=== PATIENT | male | born 1960 | race African-American/Black ===

== ENCOUNTER 2021-01-17 09:12 | Inpatient (IN) | payer OTHER ==
[~2021-01-17] VITALS: Ht 177.8 cm; Wt 61.7 kg
--- NOTE | 2021-01-17 09:15 | NUR ---
[id number] [facility] CONGREGATE FOR NOTED HYPOXIA, SPO2 70'S ON 5L NC AND ELEVATED BLOOD PRESSURE AT 193/122MMHG. TO ER BED 8, PLACED ON NON-REBREATHER MASK AT 15LPM. SPO2 READING AT 98%. HOOKED TO MONITOR. BP AT 188/134MMHG. CHANGED TO HOSP GOWN. DR NIELSEN AT BEDSIDE.
[2021-01-17 09:35] LABS: WHITE BLOOD COUNT (AUTO) 13.5 K/uL (4.3-11.0)
--- NOTE | 2021-01-17 09:43 | NUR ---
URINE SAMPLE COLLECTED VIA STRAIGHT CATHETER. SENT SAMPLE TO LAB
[2021-01-17 09:48] LABS: CALCIUM, SERUM 9.3 mg/dL (8.5-10.1); CARBON DIOXIDE 20 mmol/L (21-32); CHLORIDE 102 mmol/L (98-107); CREATININE 4.9 mg/dL (0.6-1.3); GLUCOSE 204 mg/dL (74-106); POTASSIUM 4.3 mmol/L (3.5-5.1); SODIUM SERUM 137 mmol/L (136-145); UREA NITROGEN, BLOOD 64 mg/dL (7-18)
[2021-01-17 09:53] LABS: BASOPHILS # (AUTO) 0.1 K/uL (0.0-0.2); BASOPHILS % (AUTO) 0.4 % (0.0-2.0); EOSINOPHILS % (AUTO) 0.7 % (0.0-6.0); HEMATOCRIT 37 % (39-51); HEMOGLOBIN 12.1 g/dL (13.5-17.5); LYMPHOCYTES # (AUTO) 1.6 K/uL (0.8-4.8); LYMPHOCYTES % (AUTO) 12.1 % (20.0-44.0); MEAN CORPUSCULAR HGB CONC 33 g/dl (31.0-36.0); MEAN CORPUSCULAR VOLUME 97 fL (80-96); MONOCYTES # (AUTO) 0.7 K/uL (0.1-1.30); MONOCYTES % (AUTO) 4.9 % (2.0-12.0); NEUTROPHILS # (AUTO) 11.1 K/uL (1.8-8.9); NEUTROPHILS % (AUTO) 81.9 % (43.0-81.0); PLATELET COUNT (AUTO) 314 K/uL (150-450); RED BLOOD CELL COUNT(AUTO) 3.81 MIL/uL (4.5-6.0)
[2021-01-17 10:00] LABS: ALANINE AMINOTRANSFERASE 134 U/L (12-78); ALBUMIN 3.1 g/dL (3.4-5.0); ALKALINE PHOSPHATASE 60 U/L (46-116); ASPARTATE AMINOTRANSFERASE 80 U/L (15-37); BILIRUBIN,DIRECT 0.2 mg/dL (0.0-0.2); BILIRUBIN,TOTAL 0.6 mg/dL (0.2-1.0)
[2021-01-17 10:01] LABS: ALCOHOL, BLOOD < 3 mg/dL (0-0)
[2021-01-17 10:05] LABS: SERUM AMMONIA 14 umol/L (11-32)
--- NOTE | 2021-01-17 10:05 | NUR ---
MADE MD AWARE OF PATIENT'S BP
[2021-01-17 10:25] LABS: ABG BASE EXCESS -5.6 mmol/L; ABG PH 7.364 (7.350-7.450); ABG PO2 127.2 mmHg (75.0-100.0); COHb 0.2 % (0.5-1.5); MetHb 0.1 % (0.0-1.5); SITE, ABG Right Radial; VENT MODE, BG NRB MASK
[2021-01-17] MEDS ORDERED: FUROSEMIDE 40 MG/4 ML VIAL ONE (10:25)
[2021-01-17] MEDS ORDERED: FUROSEMIDE 40 MG/4 ML VIAL IV ONE (10:30)
[2021-01-17] MEDS ORDERED: hydrALAZINE HCL IV 20 MG VIAL IV ONE (11:00)
[2021-01-17] MEDS ORDERED: hydrALAZINE HCL IV 20 MG VIAL ONE (11:12)
[2021-01-17] MEDS ORDERED: DOCU-141 PO (11:26)
[2021-01-17] MEDS ORDERED: AMLO10TA4 PO (11:26)
[2021-01-17] MEDS ORDERED: HEPA100D33 SUBCUT (11:26)
[2021-01-17] MEDS ORDERED: ISOS30TA86 PO (11:26)
[2021-01-17] MEDS ORDERED: ASPI-1169 PO (11:26)
[2021-01-17] MEDS ORDERED: ATOR40TA PO (11:26)
[2021-01-17] MEDS ORDERED: MIRT-119 PO (11:26)
[2021-01-17] MEDS ORDERED: HYDR100T27 PO (11:26)
[2021-01-17] MEDS ORDERED: CARV25TA PO (11:26)
[2021-01-17] MEDS ORDERED: CLONIDINE PATCH (11:26)
--- NOTE | 2021-01-17 12:17 | NUR ---
CALLED NURSING SUP REGARDING PT BED
[2021-01-17] MEDS ORDERED: HYDROCODONE/APAP 5/325MG TABLET PO PRN (12:30)
[2021-01-17] MEDS ORDERED: Z GUARD REMEDY 2 OZ OINT TP PRN (12:30)
[2021-01-17] MEDS ORDERED: ACETAMINOPHEN 325 MG TABLET PO PRN (12:30)
[2021-01-17] MEDS ORDERED: ZOLPIDEM TARTRATE 5 MG TABLET PO PRN (12:30)
[2021-01-17] MEDS ORDERED: ONDANSETRON HCL/PF 4 MG/2 ML VIAL IVP PRN (12:30)
--- NOTE | 2021-01-17 12:42 | NUR ---
ROOM 113-1
--- NOTE | 2021-01-17 12:54 | NUR ---
REPORT GIVEN TO ILIR ALVAREZ.
[2021-01-17] MEDS ORDERED: MORPHINE SULFATE INJ 2 MG/ML DISP.SYRIN IV PRN (13:00)
[2021-01-17] MEDS ORDERED: NITROGLYCERIN 0.4 MG/TAB BOTTLE SL PRN (13:00)
--- NOTE | 2021-01-17 13:05 | NUR ---
COVID PCR SWAB COLLECTED AND SENT TO LAB
[2021-01-17] MEDS ORDERED: BUMETANIDE INJ 4 MG in IV NS 0.9% 24 ML IV ONE (14:00)
--- NOTE | 2021-01-17 14:00 | NUR ---
RN NOTE PATIENT RECEIVED ON THE FLOOR. PATIENT ON 6L O2 NC WITH NO SIGNS OF LABORED BREATHING AT THIS TIME. PATIENT STABLE AT THIS TIME. RIGHT AC 18G PIV IN PLACE, PATENT WITH NO SIGNS OF INFILTRATION. WILL CONTINUE TO MONITOR.
[2021-01-17] MEDS: hydrALAZINE HCL 25 MG TABLET PO SCH ×2 (14:27→17:32)
[2021-01-17] MEDS: ASPIRIN EC 81 MG TABLET.DR PO SCH (14:27)
[2021-01-17] MEDS: CARVEDILOL 3.125 MG TABLET PO SCH ×2 (14:27→17:33)
[2021-01-17] MEDS: AMLODIPINE BESYLATE 10 MG TABLET PO SCH (14:27)
[2021-01-17] MEDS: ISOSORBIDE MONONITRATE (30MG) 30 MG TAB.SR.24H PO SCH (14:28)
[2021-01-17 14:30] VITALS: BP 166/97
[2021-01-17 16:00] VITALS: BP 142/82
[2021-01-17] MEDS: DOCUSATE SODIUM 100 MG CAPSULE PO SCH (17:00)
--- NOTE | 2021-01-17 19:00 | NUR ---
RN NOTE RECEIVED PATIENT IN BED, AO X 3, IN NO S/SX OF ACUTE DISTRESS AT THIS TIME. SATURATION AT 96% ON 6L VIA SR ON THE MONITOR, HR IS 82. NOTED IV SITE AT RAC 18G, AND LFA 18G, BOTH PATENT AND FLUSHING WELL, NO S/S OF INFECTION OR INFILTRATION. APPROPRIATE ISOLATION PRECAUTIONS IN PLACE. SAFETY MEASURES IMPLEMENTED. PATIENT BED ALARM IS ON. HEAD OF BED ELEVATED. BED IS LOCKED, IN LOWEST POSITION AND SIDE RAILS UP. CALL LIGHT WITHIN REACH OF THE PATIENT. WILL CONTINUE TO MONITOR AND REASSESS FOR ANY CHANGES.
[2021-01-17 20:00] VITALS: BP 139/92
--- NOTE | 2021-01-17 20:51 | NUR ---
RN NOTE TELEPHONE CALL FROM HALLIE OF LAB, RELAYED CRITICAL LAB VALUE OF TROPONIN 0.[address] GATES WAS NOTIFIED, ORDER RECEIVED FOR EKG WITH PLAN TO START PATIENT ON HEPARIN DRIP.
[2021-01-17] MEDS ORDERED: HEPARIN SODIUM, PORCINE 5000 UNITS/1 ML VIAL SQ SCH (21:00)
[2021-01-17] MEDS: MIRTAZAPINE 15 MG TABLET PO SCH (21:14)
[2021-01-17] MEDS: ATORVASTATIN 40 MG TABLET PO SCH (21:14)
--- NOTE | 2021-01-17 21:40 | NUR ---
RN NOTE RT AT BEDSIDE FOR EKG
--- NOTE | 2021-01-17 21:45 | NUR ---
KIM NOTE NORMA RESULTED, STRIP SENT TO DR GATES Addendum: 01/18/21 at 0201 by JUAN JOSÉ LARRY RN ORDER RECEIVED TO START HEPARIN INFUSION.
[2021-01-17] MEDS ORDERED: HEPARIN INFUSION/D5W 500 ML IV ONE (22:07)
[2021-01-17] MEDS ORDERED: HEPARIN INFUSION/D5W 500 ML IV PRN (22:30)
--- NOTE | 2021-01-17 22:45 | NUR ---
2245 RECEIVED A CALL FROM PANTRY WORKER PHARMACIST THOMAS TO HOLD HEPARIN BOLUS PATIENT ALREADY RECEIVED HEPARIN SUB-Q ORDERED.
--- NOTE | 2021-01-17 22:50 | NUR ---
2250 KIM LARRY MADE AWARE TO HOLD HEPARIN BOLUS PER PHARMACIST.
[2021-01-17] MEDS ORDERED: FUROSEMIDE 20 MG/2 ML VIAL IV ONE (23:30)
[2021-01-18] VITALS: BP 143/93
[2021-01-18 04:00] VITALS: BP 159/98
[2021-01-18 06:14] LABS: CALCIUM, SERUM 8.8 mg/dL (8.5-10.1); CARBON DIOXIDE 21 mmol/L (21-32); CHLORIDE 99 mmol/L (98-107); CREATININE 5.1 mg/dL (0.6-1.3); GLUCOSE 156 mg/dL (74-106); MAGNESIUM 2.3 mg/dL (1.8-2.4); PHOSPHORUS 5.4 mg/dL (2.5-4.9); SODIUM SERUM 133 mmol/L (136-145); UREA NITROGEN, BLOOD 65 mg/dL (7-18)
[2021-01-18 06:36] LABS: BASOPHILS % (AUTO) 0.6 % (0.0-2.0); EOSINOPHILS % (AUTO) 2.1 % (0.0-6.0); HEMATOCRIT 31 % (39-51); HEMOGLOBIN 10.4 g/dL (13.5-17.5); LYMPHOCYTES # (AUTO) 2.7 K/uL (0.8-4.8); LYMPHOCYTES % (AUTO) 34.7 % (20.0-44.0); MEAN CORPUSCULAR HGB CONC 34 g/dl (31.0-36.0); MEAN CORPUSCULAR VOLUME 96 fL (80-96); MONOCYTES # (AUTO) 0.9 K/uL (0.1-1.30); MONOCYTES % (AUTO) 11.7 % (2.0-12.0); NEUTROPHILS # (AUTO) 3.9 K/uL (1.8-8.9); NEUTROPHILS % (AUTO) 50.9 % (43.0-81.0); PLATELET COUNT (AUTO) 284 K/uL (150-450); RED BLOOD CELL COUNT(AUTO) 3.17 MIL/uL (4.5-6.0); WHITE BLOOD COUNT (AUTO) 7.7 K/uL (4.3-11.0)
--- NOTE | 2021-01-18 07:30 | NUR ---
[place] RN AM NOTE RECEIVED PATIENT IN BED, AO X 3, IN NO S/SX OF ACUTE DISTRESS AT THIS TIME. ON 6L O2 NASAL CANULA, 96% O2 SAT, SINUS RHYTHM HR IS 97 ON MONITOR. RAC 18G, AND LFA 18G, BOTH FLUSHES, BOTH SITES CLEAR. PATIENT ON HEPARIN DRIP 915 U/HR, APTT THIS MORNING 48.1 NO CHANGE TO DOSE. NO SIGNS OF BLEEDING. APPROPRIATE ISOLATION PRECAUTIONS IN PLACE. SEE NURSING FLOWSHEET FOR SKIN ISSUES. RENAL DIET. NEEDS ASSIST. SAFETY MEASURES IMPLEMENTED. PATIENT BED ALARM IS ON. HEAD OF BED ELEVATED. BED IS LOCKED, IN LOWEST POSITION AND SIDE RAILS UP. CALL LIGHT WITHIN REACH OF THE PATIENT. WILL CONTINUE TO MONITOR AND REASSESS FOR ANY CHANGES.
[2021-01-18] MEDS: PANTOPRAZOLE 40 MG TABLET.DR PO SCH (07:58)
[2021-01-18 08:00] VITALS: BP 159/97
[2021-01-18 08:07] LABS: THYROID STIMULATING HORMONE 1.001 uIU/mL (0.358-3.74)
[2021-01-18] MEDS ORDERED: ASPIRIN 81 MG TAB.CHEW PO SCH (09:00)
--- NOTE | 2021-01-18 09:30 | NUR ---
RN NOTES DUE MEDS GIVEN
[2021-01-18] MEDS: CARVEDILOL 3.125 MG TABLET PO SCH (09:45)
[2021-01-18] MEDS: ISOSORBIDE MONONITRATE (30MG) 30 MG TAB.SR.24H PO SCH (09:45)
[2021-01-18] MEDS: DOCUSATE SODIUM 100 MG CAPSULE PO SCH ×2 (09:45→17:41)
[2021-01-18] MEDS: hydrALAZINE HCL 25 MG TABLET PO SCH ×3 (09:46→17:41)
[2021-01-18] MEDS: AMLODIPINE BESYLATE 10 MG TABLET PO SCH (09:47)
[2021-01-18] MEDS: ASPIRIN EC 81 MG TABLET.DR PO SCH (09:47)
--- NOTE | 2021-01-18 10:59 | NUR ---
WOUND CARE CONSULT: REVIEWED CHART, NURSING DOCUMENTATION AND PHOTO WHICH INDICATES STAGE 2 ULCER TO LOWER BACK/SACRAL AREA, PRESENT ON ADMISSION. RECOMMENDATIONS MADE FOR WOUND CARE AND SKIN PROTECTION. DISCUSSED WITH NURSING STAFF. IN AGREEMENT WITH PLAN OF CARE. Addendum: 01/18/21 at 1104 by UMAIR MICHAELS WNDNU [facility]
--- NOTE | 2021-01-18 11:47 | NUR ---
RN NOTES DR. DOUGIE WILKERSON AT BEDSIDE. DC HEPARIN DRIP.
[2021-01-18 12:00] VITALS: BP 152/90
[2021-01-18] MEDS ORDERED: HYDROGEL DRESSING 90 GM TUBE TP PRN (12:00)
[2021-01-18] MEDS: HYDROGEL DRESSING 90 GM TUBE TP SCH (12:12)
[2021-01-18 16:00] VITALS: BP 146/85
--- NOTE | 2021-01-18 19:03 | NUR ---
RN NOTES ALL NEEDS MET AT THIS TIME. STABLE. NO SIGNIFICANT CHANGE IN CONDITION. WILL ENDORSE TO NEXT SHIFT FOR GIANNI.
--- NOTE | 2021-01-18 19:30 | NUR ---
RN OPENING NOTES RECEIVED PATIENT ON BED, SLEEPING BUT EASY TO AROUSED, RESPIRATORY EVEN AND UNLABORED, ON O2 4LPM, NO SOB NOTED, DENIES PAIN, NO S/S OF DISTRESS NOTED, RESIDENT NOTED WITH RFA G#18, LFA G#18 BOTH INTACT, PATENT AND FLUSHED WITH NS, NO INFILTRATION NOTED IN SITE. BED IN LOWEST POSITION, LOCKED, SIDE RAILS UP, BED ALARM ARMED. ALL NEEDS ATTENDED. CALL LIGHT WITH IN REACH.
[2021-01-18 20:00] VITALS: BP 154/99
[2021-01-18] MEDS: MIRTAZAPINE 15 MG TABLET PO SCH (21:22)
[2021-01-18] MEDS: ATORVASTATIN 40 MG TABLET PO SCH (21:22)
[2021-01-19] VITALS: BP 157/99
--- NOTE | 2021-01-19 00:35 | NUR ---
RN NOTES URINE COLLECTED; NOTIFIED LAB FOR ECCLESIASTICAL WORKER.
[2021-01-19 04:00] VITALS: BP 147/86
[2021-01-19 04:44] LABS: BILIRUBIN,URINE NEGATIVE (NEGATIVE); COLOR,URINE YELLOW (YELLOW); LEUKOCYTE ESTERASE ,URINE NEGATIVE (NEGATIVE); NITRITE, URINE NEGATIVE (NEGATIVE); PROTEIN,URINE TRACE mg/dl (NEGATIVE); UGLUCOSE NEGATIVE (NEGATIVE); UROBILINOGEN,URINE 0.2 EU/dL (0.2)
[2021-01-19 05:00] LABS: CREATININE, URINE 33.7 MG/DL (30.0-125.0)
--- NOTE | 2021-01-19 06:58 | NUR ---
RN CLOSING NOTES PATIENT AWAKE ON BED, WATCHING TV, RESPIRATORY EVEN AND UNLABORED, ON O2 4LPM, NO SOB NOTED, DENIES PAIN, NO S/S OF DISTRESS NOTED, SR ON BOARDMARKER AND 89 HR. PATIENT WITH RFA G#18, LFA G#18 BOTH INTACT, PATENT AND FLUSHED WITH NS, NO INFILTRATION NOTED IN SITE. ALL DUE MEDS GIVEN ORDERED. BED IN LOWEST POSITION, LOCKED, SIDE RAILS UP, BED ALARM ARMED. ALL NEEDS ATTENDED. CALL LIGHT WITH IN REACH.
[2021-01-19 07:28] LABS: ALBUMIN 2.8 g/dL (3.4-5.0); BILIRUBIN,TOTAL 0.6 mg/dL (0.2-1.0); CALCIUM, SERUM 8.7 mg/dL (8.5-10.1); CREATININE 4.9 mg/dL (0.6-1.3); MAGNESIUM 2.4 mg/dL (1.8-2.4); PHOSPHORUS 5.8 mg/dL (2.5-4.9); POTASSIUM 3.8 mmol/L (3.5-5.1); TOTAL PROTEIN, SERUM 7.2 g/dL (6.4-8.2)
[2021-01-19 07:31] LABS: BASOPHILS % (AUTO) 0.6 % (0.0-2.0); EOSINOPHILS % (AUTO) 1.5 % (0.0-6.0); HEMATOCRIT 29 % (39-51); LYMPHOCYTES # (AUTO) 2.3 K/uL (0.8-4.8); LYMPHOCYTES % (AUTO) 30.7 % (20.0-44.0); MEAN CORPUSCULAR HGB CONC 35 g/dl (31.0-36.0); MEAN CORPUSCULAR VOLUME 96 fL (80-96); MONOCYTES # (AUTO) 0.7 K/uL (0.1-1.30); MONOCYTES % (AUTO) 9.9 % (2.0-12.0); NEUTROPHILS # (AUTO) 4.3 K/uL (1.8-8.9); NEUTROPHILS % (AUTO) 57.3 % (43.0-81.0); PLATELET COUNT (AUTO) 259 K/uL (150-450); RED BLOOD CELL COUNT(AUTO) 2.99 MIL/uL (4.5-6.0); WHITE BLOOD COUNT (AUTO) 7.6 K/uL (4.3-11.0)
[2021-01-19 08:00] VITALS: BP 131/80
[2021-01-19 08:01] LABS: BACTERIA,URINE Few /HPF (None Seen); SQUAMOUS EPITHELIAL CELL,UR Few /HPF (None Seen); WBC,URINE 0-2 /HPF (0-3)
[2021-01-19] MEDS: ISOSORBIDE MONONITRATE (30MG) 30 MG TAB.SR.24H PO SCH (08:43)
[2021-01-19] MEDS: DOCUSATE SODIUM 100 MG CAPSULE PO SCH ×2 (08:43→17:07)
[2021-01-19] MEDS: ASPIRIN EC 81 MG TABLET.DR PO SCH (08:44)
[2021-01-19] MEDS: PANTOPRAZOLE 40 MG TABLET.DR PO SCH (08:44)
[2021-01-19] MEDS: hydrALAZINE HCL 25 MG TABLET PO SCH ×3 (08:44→17:07)
[2021-01-19] MEDS: AMLODIPINE BESYLATE 10 MG TABLET PO SCH (08:44)
[2021-01-19] MEDS: CARVEDILOL 12.5 MG TABLET PO SCH ×2 (08:45→17:07)
[2021-01-19] MEDS: HYDROGEL DRESSING 90 GM TUBE TP SCH (08:45)
[2021-01-19 12:00] VITALS: BP 131/80
[2021-01-19] MEDS: LOSARTAN POTASSIUM 50 MG TABLET PO SCH (12:59)
[2021-01-19] MEDS: FUROSEMIDE 40 MG/4 ML VIAL IV SCH ×2 (14:41→17:07)
[2021-01-19 16:00] VITALS: BP 130/77
--- NOTE | 2021-01-19 19:20 | NUR ---
BALLOON PILOT OPENING NOTES: RECEIVED PATIENT IN BED,ASLEEP EASILY AROUSABLE. NO S/S OF DISTRESS NOTED. A/O X3. NO COMPLAIN OF PAIN. CALL LIGHT WITHIN REACH. BED ALARM ON. BED IN LOWEST AND LOCKED POSITION. ON O2 AT 4L/MIN NASAL CANNULA. WITH CONDOM CATHETER, DRAINING CLEAR YELLOW URINE OUTPUT.HEELS OFFLOADED. TURNED AND REPOSITIONED. HOB ELEVATED.
[2021-01-19 20:00] VITALS: BP 141/87
--- NOTE | 2021-01-19 20:30 | NUR ---
ON SINUS RHYTHM.
[2021-01-19] MEDS: ATORVASTATIN 40 MG TABLET PO SCH (21:50)
[2021-01-19] MEDS: MIRTAZAPINE 15 MG TABLET PO SCH (21:51)
[2021-01-20] VITALS: BP 154/91
[2021-01-20 04:00] VITALS: BP 124/79
--- NOTE | 2021-01-20 06:00 | NUR ---
GROVE SUPERINTENDENT CLOSING NOTES: PATIENT IN BED, ASLEEP, EASILY AROUSABLE. NO S/S OF DISTRESS NOTED. NO COMPLAIN OF PAIN. CALL LIGHT WITHIN REACH. BED IN LOWEST AND LOCKED POSITION. BEDREST. TURNED AND REPOSITIONED [id number]. HEELS OFFLOADED.WITH CONDOM CATHETER INTACT. ON O2 AT 4L/MIN NASAL CANNULA. WOUND TREATMENT ON THE SACRAL DONE.OFFLOADED.
--- NOTE | 2021-01-20 07:42 | NUR ---
RN OPENING NOTE RECEIVED PATIENT ON BED, SLEEPING BUT EASY TO AROUSED A/O X 3 , RESPIRATORY EVEN AND UNLABORED, ON O2 4L NC, NO SOB NOTED, DENIES PAIN, NO S/S OF DISTRESS NOTED, RESIDENT NOTED WITH RFA G#18, LFA G#18 BOTH INTACT, PATENT AND FLUSHED WITH NS, SL. SAFETY PROTOCOL IN PLACE BED IN LOWEST POSITION, LOCKED, SIDE RAILS UP, BED ALARM ARMED. CALL LIGHT WITH IN REACH
[2021-01-20 08:00] VITALS: BP 146/78
[2021-01-20] MEDS: DOCUSATE SODIUM 100 MG CAPSULE PO SCH ×2 (08:16→17:00)
[2021-01-20] MEDS: AMLODIPINE BESYLATE 10 MG TABLET PO SCH (08:17)
[2021-01-20] MEDS: LOSARTAN POTASSIUM 50 MG TABLET PO SCH (08:17)
[2021-01-20] MEDS: ISOSORBIDE MONONITRATE (30MG) 30 MG TAB.SR.24H PO SCH (08:17)
[2021-01-20] MEDS: CARVEDILOL 12.5 MG TABLET PO SCH ×2 (08:17→17:00)
[2021-01-20] MEDS: PANTOPRAZOLE 40 MG TABLET.DR PO SCH (08:17)
[2021-01-20] MEDS: hydrALAZINE HCL 25 MG TABLET PO SCH ×3 (08:18→16:12)
[2021-01-20] MEDS: FUROSEMIDE 40 MG/4 ML VIAL IV SCH ×2 (08:18→16:11)
[2021-01-20] MEDS: ASPIRIN EC 81 MG TABLET.DR PO SCH (08:18)
[2021-01-20] MEDS: HYDROGEL DRESSING 90 GM TUBE TP SCH (08:18)
--- NOTE | 2021-01-20 10:55 | NUR ---
RN NOTE ROUND DONE, PATIENT IS IN BED IN A SEMI FOWLERS POSITION. PT DOES NOT EXPRESS SOB OR PAIN AT THIS TIME. SKIN CARE PERFORMED. SAFETY PROTOCOL IN PLACE, BED ALARM ACTIVATED, BED IN LOWEST POSITION, SIDE RAILS UPX2 AND CALL LIGHT WITHIN REACH.
[2021-01-20 12:00] VITALS: BP 129/72
[2021-01-20 12:00] LABS: BASOPHILS % (AUTO) 0.8 % (0.0-2.0); EOSINOPHILS % (AUTO) 1.1 % (0.0-6.0); HEMATOCRIT 31 % (39-51); HEMOGLOBIN 10.7 g/dL (13.5-17.5); LYMPHOCYTES # (AUTO) 1.7 K/uL (0.8-4.8); LYMPHOCYTES % (AUTO) 30.4 % (20.0-44.0); MEAN CORPUSCULAR HGB CONC 34 g/dl (31.0-36.0); MEAN CORPUSCULAR VOLUME 96 fL (80-96); MONOCYTES # (AUTO) 0.4 K/uL (0.1-1.30); NEUTROPHILS # (AUTO) 3.3 K/uL (1.8-8.9); NEUTROPHILS % (AUTO) 60.7 % (43.0-81.0); PLATELET COUNT (AUTO) 283 K/uL (150-450); RED BLOOD CELL COUNT(AUTO) 3.27 MIL/uL (4.5-6.0); WHITE BLOOD COUNT (AUTO) 5.4 K/uL (4.3-11.0)
[2021-01-20 12:57] LABS: ALBUMIN 2.5 g/dL (3.4-5.0); BILIRUBIN,TOTAL 0.4 mg/dL (0.2-1.0); CALCIUM, SERUM 8.1 mg/dL (8.5-10.1); CREATININE 5.2 mg/dL (0.6-1.3); MAGNESIUM 2.3 mg/dL (1.8-2.4); PHOSPHORUS 5.6 mg/dL (2.5-4.9); POTASSIUM 3.1 mmol/L (3.5-5.1); TOTAL PROTEIN, SERUM 6.6 g/dL (6.4-8.2)
[2021-01-20 16:00] VITALS: BP 106/62
--- NOTE | 2021-01-20 17:16 | NUR ---
RN NOTE HELD MEDICATION CARVEDILOL DUE TO PATIENT BLOOD PRESSURE 98/56
--- NOTE | 2021-01-20 18:19 | NUR ---
SHELLFISH MANAGER CLOSING NOTE 113 PATIENT REMAINS IN ROOM IN NO SIGNS OF RESPIRATORY DISTRESS OR PAIN, PATIENT ON 4L OF 02 VIA NC ;TOLERATING WELL SATURATING @ >95% SP02. SAFETY MEASURES IMPLEMENTED, BED IN LOWEST POSITION, LOCKED, SIDE RAILS UP, CALL LIGHT WITHIN REACH. ALL NEEDS AND ORDERS ADDRESSED DURING THE SHIFT. IV ACCESS MAINTAINED INTACT, SECURED AND FLUSHING WELL. PATIENT KEPT CLEAN AND COMFORTABLE WITHIN THE SHIFT. PATIENT ENDORSED TO [facility] SHIFT RN GIANNI
[2021-01-20 20:00] VITALS: BP 115/68
--- NOTE | 2021-01-20 20:00 | NUR ---
RN OPENING NOTE PT AWAKE IN BED RESTING. ON NC WITH 4L O2 WITH NO RESPIRATORY DISTRESS. A/O X4 AND CROATIAN SPEAKING. ON TELE MONITOR SINUS RHYTHM. CONDOM CATHETER PRESENT. BEDREST. SKIN ISSUES PRESENT. FALL RISK D/T HEMIPLEGIA. IV PRESENT ON R AC 18G AND L FA 18 G SALINE LOCKED. FLUSHES WELL. LABS AND ORDERS REVIEWED. SAFETY MEASURES IN PLACE. SIDE RAILS RAISED. BED LOWERED. CALL LIGHT WITHIN REACH. WILL CONTINUE TO MONITOR.
[2021-01-20] MEDS: MIRTAZAPINE 15 MG TABLET PO SCH (21:04)
[2021-01-20] MEDS: ATORVASTATIN 40 MG TABLET PO SCH (21:04)
[2021-01-21] VITALS: BP 116/62
[2021-01-21 04:00] VITALS: BP 145/90
--- NOTE | 2021-01-21 06:16 | NUR ---
RN CLOSING NOTE PT AWAKE IN BED RESTING. ON NC WITH 2L O2 WITH NO RESPIRATORY DISTRESS. A/O X4 AND AMHARIC SPEAKING. ON TELE MONITOR SINUS RHYTHM. CONDOM CATHETER PRESENT. BEDREST. SKIN ISSUES PRESENT. FALL RISK D/T HEMIPLEGIA. IV PRESENT ON R AC 18G AND L FA 18 G SALINE LOCKED. FLUSHES WELL. LABS AND ORDERS REVIEWED. SAFETY MEASURES IN PLACE. SIDE RAILS RAISED. BED LOWERED. CALL LIGHT WITHIN REACH. WILL GIVE REPORT TO NIGHT NURSE FOR GIANNI.
[2021-01-21 07:01] LABS: BASOPHILS % (AUTO) 0.6 % (0.0-2.0); EOSINOPHILS % (AUTO) 0.8 % (0.0-6.0); HEMATOCRIT 37 % (39-51); HEMOGLOBIN 12.8 g/dL (13.5-17.5); LYMPHOCYTES # (AUTO) 2.7 K/uL (0.8-4.8); LYMPHOCYTES % (AUTO) 35.3 % (20.0-44.0); MEAN CORPUSCULAR HGB CONC 35 g/dl (31.0-36.0); MEAN CORPUSCULAR VOLUME 97 fL (80-96); MONOCYTES # (AUTO) 0.8 K/uL (0.1-1.30); MONOCYTES % (AUTO) 10.1 % (2.0-12.0); NEUTROPHILS % (AUTO) 53.2 % (43.0-81.0); PLATELET COUNT (AUTO) 323 K/uL (150-450); RED BLOOD CELL COUNT(AUTO) 3.82 MIL/uL (4.5-6.0); WHITE BLOOD COUNT (AUTO) 7.6 K/uL (4.3-11.0)
[2021-01-21 07:15] LABS: ALBUMIN 2.5 g/dL (3.4-5.0); BILIRUBIN,TOTAL 0.4 mg/dL (0.2-1.0); CALCIUM, SERUM 8.5 mg/dL (8.5-10.1); CREATININE 5.4 mg/dL (0.6-1.3); MAGNESIUM 2.3 mg/dL (1.8-2.4); PHOSPHORUS 6.7 mg/dL (2.5-4.9); POTASSIUM 3.8 mmol/L (3.5-5.1); TOTAL PROTEIN, SERUM 7.1 g/dL (6.4-8.2)
--- NOTE | 2021-01-21 07:50 | NUR ---
RN OPENING NOTE PATIENT RECEIVED IN BED, RESTING. PATIENT ON 2L O2 NC WITH NO SIGNS OF LABORED BREATHING AT THIS TIME. RIGHT AC AND LEFT AC 18G IV IN PLACE, PATENT WITH NO SIGNS OF INFILTRATION. BED LOCKED AND IN LOWEST POSITION, NO SIGNS OF DISTRESS NOTED AT THIS TIME, CALL LIGHT WITHIN REACH, 3 SIDE RAILS UP. WILL CONTINUE TO MONITOR.
[2021-01-21 08:00] VITALS: BP 152/97
[2021-01-21] MEDS: FUROSEMIDE 40 MG/4 ML VIAL IV SCH ×2 (08:13→16:16)
[2021-01-21] MEDS: PANTOPRAZOLE 40 MG TABLET.DR PO SCH (08:13)
[2021-01-21] MEDS: AMLODIPINE BESYLATE 10 MG TABLET PO SCH (08:14)
[2021-01-21] MEDS: CARVEDILOL 12.5 MG TABLET PO SCH ×2 (08:15→16:17)
[2021-01-21] MEDS: ISOSORBIDE MONONITRATE (30MG) 30 MG TAB.SR.24H PO SCH (08:16)
[2021-01-21] MEDS: LOSARTAN POTASSIUM 50 MG TABLET PO SCH (08:16)
[2021-01-21] MEDS: ASPIRIN EC 81 MG TABLET.DR PO SCH (08:16)
[2021-01-21] MEDS: DOCUSATE SODIUM 100 MG CAPSULE PO SCH ×2 (08:17→16:16)
[2021-01-21] MEDS: hydrALAZINE HCL 25 MG TABLET PO SCH ×3 (08:17→16:17)
[2021-01-21] MEDS: HYDROGEL DRESSING 90 GM TUBE TP SCH (08:25)
[2021-01-21 12:00] VITALS: BP 128/79
[2021-01-21 16:00] VITALS: BP 110/74
[2021-01-21] MEDS: MINOXIDIL (2.5MG) 2.5 MG TABLET PO SCH (16:17)
--- NOTE | 2021-01-21 18:51 | NUR ---
RN CLOSING NOTE PATIENT REMAINS IN BED, AWAKE. PATIENT ON 2L O2 NC WITH NO SIGNS OF LABORED BREATHING AT THIS TIME. RIGHT AC AND LEFT AC 18G IV IN PLACE, PATENT WITH NO SIGNS OF INFILTRATION. BED LOCKED AND IN LOWEST POSITION, NO SIGNS OF DISTRESS NOTED AT THIS TIME, CALL LIGHT WITHIN REACH, 3 SIDE RAILS UP. ALL NEEDS ATTENDED DURING SHIFT. WILL ENDORSE TO NASCAR PIT CREW PERSON NURSE.
--- NOTE | 2021-01-21 19:50 | NUR ---
RN NOTE PATIENT ALERT AND ORIENTEDX4, ABLE TO MAKE NEEDS KNOWN. ON O2 2L VIA NASAL CANNULA, NO S/S OF ACUTE DISTRESS. DENIES ANY PAIN OR DISCOMFORT. CONDOM CATH NOTED, DRAINING URINE VIA GRAVITY. IV ACCESS ON RIGHT AC #18 AND LEFT AC #18, PATENT AND INTACT. BED LOCKED AND IN LOWEST POSITION. CALL LIGHT WITHIN REACH. ALL NEEDS ANTICIPATED.
[2021-01-21 20:00] VITALS: BP 97/62
[2021-01-21] MEDS: MIRTAZAPINE 15 MG TABLET PO SCH (21:01)
[2021-01-21] MEDS: ATORVASTATIN 40 MG TABLET PO SCH (21:01)
[2021-01-22] VITALS: BP 106/71
[2021-01-22 06:23] VITALS: BP 97/66
--- NOTE | 2021-01-22 07:01 | NUR ---
RN NOTE PATIENT RESTING IN BED. ON O2 2L VIA NASAL CANNULA O2 SAT 98%. DENIES ANY PAIN OR DISCOMFORT. CONDOM CATH OUTPUT OF 300 MARLO URINE. IV ACCESS ON RIGHT AC #18 AND LEFT AC #18, PATENT AND INTACT. ALL DUE MEDS GIVEN ORDERED. BED LOCKED AND IN LOWEST POSITION. CALL LIGHT WITHIN REACH. WILL ENDORSE TO AM SHIFT.
[2021-01-22 07:09] LABS: BASOPHILS # (AUTO) 0.1 K/uL (0.0-0.2); BASOPHILS % (AUTO) 0.8 % (0.0-2.0); EOSINOPHILS % (AUTO) 1.5 % (0.0-6.0); HEMATOCRIT 32 % (39-51); HEMOGLOBIN 11.2 g/dL (13.5-17.5); LYMPHOCYTES # (AUTO) 2.1 K/uL (0.8-4.8); LYMPHOCYTES % (AUTO) 29.8 % (20.0-44.0); MEAN CORPUSCULAR HGB CONC 35 g/dl (31.0-36.0); MEAN CORPUSCULAR VOLUME 96 fL (80-96); MONOCYTES # (AUTO) 0.9 K/uL (0.1-1.30); MONOCYTES % (AUTO) 12.3 % (2.0-12.0); NEUTROPHILS # (AUTO) 3.9 K/uL (1.8-8.9); NEUTROPHILS % (AUTO) 55.6 % (43.0-81.0); PLATELET COUNT (AUTO) 309 K/uL (150-450); RED BLOOD CELL COUNT(AUTO) 3.36 MIL/uL (4.5-6.0); WHITE BLOOD COUNT (AUTO) 7.1 K/uL (4.3-11.0)
[2021-01-22 07:27] LABS: ALBUMIN 2.3 g/dL (3.4-5.0); BILIRUBIN,TOTAL 0.3 mg/dL (0.2-1.0); CALCIUM, SERUM 8.3 mg/dL (8.5-10.1); CREATININE 5.9 mg/dL (0.6-1.3); MAGNESIUM 2.4 mg/dL (1.8-2.4); PHOSPHORUS 6.7 mg/dL (2.5-4.9); POTASSIUM 3.7 mmol/L (3.5-5.1); TOTAL PROTEIN, SERUM 6.4 g/dL (6.4-8.2)
--- NOTE | 2021-01-22 07:39 | NUR ---
RN NOTES; RECEIVED PT IN BED RESTING IN SUPINE POS. PT A/OX4, NO SOB NOTED, NO DISTRESS. TOLERATING 02 AT 2LMP VIA NC SATTING @98%. PT HAS NO C/O PAIN AT THIS TIME. ALL SAFETY MEASURES RENDERED, BED IN LOWEST POS. LOCKED, SIDE RAILS UP X3, WITH CALL LIGHT WITHIN REACH. WILL CONTINUE TO MONITOR.
[2021-01-22 08:00] VITALS: BP 110/72
[2021-01-22] MEDS: AMLODIPINE BESYLATE 10 MG TABLET PO SCH (08:21)
[2021-01-22] MEDS: FUROSEMIDE 40 MG/4 ML VIAL IV SCH ×2 (08:21→16:44)
[2021-01-22] MEDS: DOCUSATE SODIUM 100 MG CAPSULE PO SCH ×2 (08:22→16:43)
[2021-01-22] MEDS: MINOXIDIL (2.5MG) 2.5 MG TABLET PO SCH (08:22)
[2021-01-22] MEDS: PANTOPRAZOLE 40 MG TABLET.DR PO SCH (08:22)
[2021-01-22] MEDS: LOSARTAN POTASSIUM 50 MG TABLET PO SCH (08:22)
[2021-01-22] MEDS: hydrALAZINE HCL 25 MG TABLET PO SCH ×3 (08:22→16:44)
[2021-01-22] MEDS: ASPIRIN EC 81 MG TABLET.DR PO SCH (08:23)
[2021-01-22] MEDS: CARVEDILOL 12.5 MG TABLET PO SCH ×2 (08:23→16:44)
[2021-01-22] MEDS: ISOSORBIDE MONONITRATE (30MG) 30 MG TAB.SR.24H PO SCH (08:23)
[2021-01-22] MEDS: HYDROGEL DRESSING 90 GM TUBE TP SCH (08:27)
--- NOTE | 2021-01-22 10:16 | NUR ---
WOUND CARE FOLLOW UP: WOUND TO LOW BACK/SACRAL AREA IS RESOLVED. RECOMMEND PROTECT WITH FOAM DSG. DISCUSSED WITH NURSING STAFF. PT ABLE TO ASSIST WITH TURNING AND REPOSITIONING IN BED. MD IN AGREEMENT WITH PLAN OF CARE.
[2021-01-22 12:00] VITALS: BP 105/56
[2021-01-22 16:00] VITALS: BP 91/54
--- NOTE | 2021-01-22 16:45 | NUR ---
KIM NOTES LASIX INJ, APRESOLINE, AND COREG HELD DUE TO PATIENT'S LOW BP 91/54. Addendum: 01/22/21 at 1646 by YOLANDA ACHARYA RN WILL CONTINUE TO MONITOR
--- NOTE | 2021-01-22 18:48 | NUR ---
RN CLOSING NOTE PATIENT REMAINS IN BED, AWAKE. PATIENT ON 2L O2 NC WITH NO SIGNS OF LABORED BREATHING AT THIS TIME. RIGHT AC AND LEFT AC 18G IV IN PLACE, PATENT WITH NO SIGNS OF INFILTRATION. ALL SAFETY MEASURES RENDERED. BED LOCKED AND IN LOWEST POSITION, NO SIGNS OF DISTRESS NOTED AT THIS TIME, CALL LIGHT WITHIN REACH, 3 SIDE RAILS UP. ALL NEEDS ATTENDED DURING SHIFT. WILL ENDORSE TO AIRCRAFT WORKER NURSE.
[2021-01-22 20:00] VITALS: BP 91/47
--- NOTE | 2021-01-22 20:00 | NUR ---
ENVIRONMENTAL STUDIES PROGRAM DIRECTOR NOTE PT IN BED AWAKE, A/O X 4, NO SOB, NO DISTRESS OR DISCOMFORT NOTED. DENIES PAIN. ON TELE SR HR 66. PT ON 2L VIA NC O2 SAT 98%. ALL NEEDS ATTENDED. PT REMAIN HYPOTENSIVE. CONTINUE TO MONITOR HIM.
[2021-01-22] MEDS: MIRTAZAPINE 15 MG TABLET PO SCH (21:34)
[2021-01-22] MEDS: ATORVASTATIN 40 MG TABLET PO SCH (21:34)
[2021-01-23] VITALS (7 sets, daily range): BP systolic 91–138; BP diastolic 52–97
--- NOTE | 2021-01-23 06:42 | NUR ---
PATHOLOGY TECH NOTE PT IN BED AWAKE, NO DISTRESS OR DISCOMFORT NOTED. DENIES PAIN. ON TELE SR , ALL NEEDS ATTENDED. SIDE RAILS UP X 2 AND CALL LIGHT WITHIN REACH. WILL ENDORSE TO DAY SHIFT NURSE FOR CONTINUE TO CARE.
--- NOTE | 2021-01-23 07:30 | NUR ---
RN NOTE PT IN BED AWAKE, A/O X 4, NO SOB, NO DISTRESS OR DISCOMFORT NOTED. DENIES PAIN. ON TELE MONITOR. PT ON 2L VIA NC O2 SAT 98%. . CONTINUE TO MONITOR HIM.
[2021-01-23] MEDS: PANTOPRAZOLE 40 MG TABLET.DR PO SCH (07:45)
[2021-01-23] MEDS: FUROSEMIDE 40 MG/4 ML VIAL IV SCH ×2 (09:42→16:35)
[2021-01-23] MEDS: ISOSORBIDE MONONITRATE (30MG) 30 MG TAB.SR.24H PO SCH (09:42)
[2021-01-23] MEDS: ASPIRIN EC 81 MG TABLET.DR PO SCH (09:43)
[2021-01-23] MEDS: hydrALAZINE HCL 25 MG TABLET PO SCH ×3 (09:43→16:32)
[2021-01-23] MEDS: DOCUSATE SODIUM 100 MG CAPSULE PO SCH ×2 (09:44→16:31)
[2021-01-23] MEDS: MINOXIDIL (2.5MG) 2.5 MG TABLET PO SCH (09:44)
[2021-01-23] MEDS: CARVEDILOL 12.5 MG TABLET PO SCH ×2 (09:44→16:33)
[2021-01-23] MEDS: AMLODIPINE BESYLATE 10 MG TABLET PO SCH (09:44)
[2021-01-23] MEDS: LOSARTAN POTASSIUM 50 MG TABLET PO SCH (09:46)
[2021-01-23] MEDS ORDERED: ANESTHESIA TRAY IN PYXIS 1 EA TRAY MC ONE (16:04)
--- NOTE | 2021-01-23 18:00 | NUR ---
insert the condom catheter at 1800
--- NOTE | 2021-01-23 18:18 | NUR ---
RN CLOSING NOTE PATIENT REMAINS IN BED, AWAKE. PATIENT ON 2L O2 NC WITH NO SIGNS OF LABORED BREATHING AT THIS TIME. RIGHT AC AND LEFT AC 18G IV IN PLACE, PATENT WITH NO SIGNS OF INFILTRATION. ALL SAFETY MEASURES RENDERED. BED LOCKED AND IN LOWEST POSITION, NO SIGNS OF DISTRESS NOTED AT THIS TIME, CALL LIGHT WITHIN REACH, 3 SIDE RAILS UP. ALL NEEDS ATTENDED DURING SHIFT. WILL ENDORSE TO SATELLITE TV TECHNICIAN INSTALLER NURSE.
--- NOTE | 2021-01-23 19:20 | NUR ---
RN NOTES RECEIVED PATIENT ON BED, ALERT AND VERBALLY RESPONSIVE, RESPIRATORY EVEN AND UNLABORED, ON NASAL CANULA @ 2LPMLPM, NO SOB NOTED, DENIES PAIN, NO S/S OF DISTRESS NOTED, RESIDENT NOTED WITH RFA G#18, LFA G#18 BOTH INTACT, PATENT AND FLUSHED WITH NS, NO INFILTRATION NOTED IN SITE. BED IN LOWEST POSITION, LOCKED, SIDE RAILS UP, BED ALARM ARMED. ALL NEEDS ATTENDED. CALL LIGHT WITH IN REACH.
[2021-01-23] MEDS: MIRTAZAPINE 15 MG TABLET PO SCH (21:28)
[2021-01-23] MEDS: ATORVASTATIN 40 MG TABLET PO SCH (21:29)
[2021-01-24] VITALS: BP 106/58
[2021-01-24 04:00] VITALS: BP 121/71
--- NOTE | 2021-01-24 04:00 | NUR ---
RN NOTES PATIENT REFUSED TO SIGN THE CONSENT FOR TUNNEL CATHETER FOR HEMODIALYSIS, EXPLAINED RISKS AND BENEFITS OFFERED 3X STILL REFUSED. PRE OP CHECK LIST DONE. WILL ENDORESED TO MORNING IF THEY CAN GET THE CONSENT FROM THE PATIENT.
[2021-01-24 04:20] LABS: BASOPHILS % (AUTO) 0.4 % (0.0-2.0); EOSINOPHILS % (AUTO) 1.4 % (0.0-6.0); HEMATOCRIT 30 % (39-51); HEMOGLOBIN 10.4 g/dL (13.5-17.5); LYMPHOCYTES # (AUTO) 2.3 K/uL (0.8-4.8); MEAN CORPUSCULAR HGB CONC 34 g/dl (31.0-36.0); MEAN CORPUSCULAR VOLUME 97 fL (80-96); MONOCYTES # (AUTO) 1.2 K/uL (0.1-1.30); MONOCYTES % (AUTO) 13.5 % (2.0-12.0); NEUTROPHILS # (AUTO) 5.1 K/uL (1.8-8.9); NEUTROPHILS % (AUTO) 58.7 % (43.0-81.0); PLATELET COUNT (AUTO) 322 K/uL (150-450); RED BLOOD CELL COUNT(AUTO) 3.13 MIL/uL (4.5-6.0); WHITE BLOOD COUNT (AUTO) 8.7 K/uL (4.3-11.0)
[2021-01-24 04:48] LABS: CALCIUM, SERUM 8.1 mg/dL (8.5-10.1); CREATININE 6.5 mg/dL (0.6-1.3); POTASSIUM 4.1 mmol/L (3.5-5.1)
--- NOTE | 2021-01-24 06:10 | NUR ---
RN NOTES CALLED DR. BANUELOS OFFICE REGARDING PT. REFUSAL FOR TUNNEL CATHETER INSERTION FOR DIALYSIS UNABLE TO REACH AT THIS TIME, LEFT MESSAGE THROUGH VOICE MAIL.
--- NOTE | 2021-01-24 06:15 | NUR ---
0615 Patient strongly refusing permacath placement despite explanation of its benefits and risks of refusing, OR made aware c/o Nelson.
--- NOTE | 2021-01-24 07:04 | NUR ---
RN CLOSING NOTES NO SIGNIFICANT CHANGES THROUGH OUT THE SHIFT , ALERT AND VERBALLY RESPONSIVE, RESPIRATORY EVEN AND UNLABORED, ON NASAL CANULA @ 2LPMLPM, NO SOB NOTED, DENIES PAIN, NO S/S OF DISTRESS NOTED, RESIDENT NOTED WITH LFA G#18 BOTH INTACT, PATENT AND FLUSHED WITH NS, NO INFILTRATION NOTED IN SITE. PT. REFUSED TO SIGN THE CONSENT FOR TUNNEL CATHETER, EXPLAINED RISK AND BENEFITS, OFFER X 3 STILL REFUSED. BED IN LOWEST POSITION, LOCKED, SIDE RAILS UP, BED ALARM ARMED. ALL NEEDS ATTENDED. CALL LIGHT WITH IN REACH.
--- NOTE | 2021-01-24 07:30 | NUR ---
RN NOTES PT RECEIVED, ALERT AND VERBALLY RESPONSIVE, RESPIRATORY EVEN AND UNLABORED, ON NASAL CANULA @ 2LPMLPM, NO SOB NOTED, DENIES PAIN, NO S/S OF DISTRESS NOTED, LFA G#18 INTACT, PATENT AND FLUSHED WITH NS, NO INFILTRATION NOTED IN SITE. BED IN LOWEST POSITION, LOCKED, SIDE RAILS UP, BED ALARM ARMED. ALL NEEDS ATTENDED. CALL LIGHT WITH IN REACH. WILL GIANNI
[2021-01-24] MEDS: PANTOPRAZOLE 40 MG TABLET.DR PO SCH (07:51)
[2021-01-24 08:00] VITALS: BP 136/83
[2021-01-24] MEDS: hydrALAZINE HCL 25 MG TABLET PO SCH ×3 (09:00→16:48)
[2021-01-24] MEDS: FUROSEMIDE 40 MG/4 ML VIAL IV SCH ×2 (09:00→16:46)
[2021-01-24] MEDS: CARVEDILOL 12.5 MG TABLET PO SCH ×2 (09:00→16:46)
[2021-01-24] MEDS: ASPIRIN EC 81 MG TABLET.DR PO SCH (09:00)
[2021-01-24] MEDS: MINOXIDIL (2.5MG) 2.5 MG TABLET PO SCH (09:00)
[2021-01-24] MEDS: ISOSORBIDE MONONITRATE (30MG) 30 MG TAB.SR.24H PO SCH (09:00)
[2021-01-24] MEDS: DOCUSATE SODIUM 100 MG CAPSULE PO SCH ×2 (09:00→16:49)
[2021-01-24] MEDS: LOSARTAN POTASSIUM 50 MG TABLET PO SCH (09:00)
[2021-01-24] MEDS: AMLODIPINE BESYLATE 10 MG TABLET PO SCH (09:00)
--- NOTE | 2021-01-24 09:50 | NUR ---
RN NOTES PT REFUSED 0900 MEDICATION, BECAUSE OF BEING NPO. REPORT IT TO CHARGE NURSE ZULY AND DR BEAVER.
--- NOTE | 2021-01-24 10:59 | NUR ---
RN NOTES PER DR BEAVER, PT OK TO EAT AND RESCHEDULE NPO.
--- NOTE | 2021-01-24 11:48 | NUR ---
RN NOTES PT RECEIVED, ALERT AND VERBALLY RESPONSIVE, RESPIRATORY EVEN AND UNLABORED, ON NASAL CANULA @ 2LPMLPM, NO SOB NOTED, DENIES PAIN, NO S/S OF DISTRESS NOTED, LFA G#18 INTACT, PATENT AND FLUSHED WITH NS, NO INFILTRATION NOTED IN SITE. BED IN LOWEST POSITION, LOCKED, SIDE RAILS UP, BED ALARM ARMED. ALL NEEDS ATTENDED. CALL LIGHT WITH IN REACH. WILL GIANNI Addendum: 01/24/21 at 1152 by WILLIE LUIS RN ERROR TIME
[2021-01-24 12:00] VITALS: BP 130/73
[2021-01-24 16:00] VITALS: BP 118/68
--- NOTE | 2021-01-24 18:43 | NUR ---
RN CLOSING NOTES PT REMAIN ALERT AND VERBALLY RESPONSIVE, RESPIRATORY EVEN AND UNLABORED, ON NASAL CANULA @ 2LPMLPM, NO SOB NOTED, DENIES PAIN, NO S/S OF DISTRESS NOTED, IV SITE NOTED WITH LFA G#18 INTACT, PATENT AND FLUSHED WITH NS, NO INFILTRATION NOTED IN SITE. , OFFER X 3 STILL REFUSED. BED IN LOWEST POSITION, LOCKED, SIDE RAILS UP, BED ALARM ARMED. ALL NEEDS ATTENDED. CALL LIGHT WITH IN REACH, BED IN LOCK POSITION, ENDORSED TO NOC SHIFT
--- NOTE | 2021-01-24 19:45 | NUR ---
RN OPENING NOTES RECEIVED PATIENT IN BED, RESTING AND IN NO S/S OF DISTRESS. PATIENT ON 2L O2 VIA NC, NO SOB OR LABORED BREATHING. IV SITE NOTED WITH LFA G#18 INTACT, PATENT AND FLUSHED WITH NS, NO INFILTRATION NOTED IN SITE. CONDOM CATHETER NOTED, DRAINING ADEQUATELY. ALL ENVIRONMENTAL SAFETY MEASURES TAKEN AT THIS TIME, BED IN LOWEST POSITION, LOCKED, SIDE RAILS UP, BED ALARM ON AND LOCKED, CALL LIGHT WITHIN REACH.
[2021-01-24 20:00] VITALS: BP 122/64
[2021-01-24] MEDS: ATORVASTATIN 40 MG TABLET PO SCH (21:15)
[2021-01-24] MEDS: MIRTAZAPINE 15 MG TABLET PO SCH (21:15)
[2021-01-25] VITALS: BP 114/68
[2021-01-25 04:00] VITALS: BP 126/79
--- NOTE | 2021-01-25 06:13 | NUR ---
RN CLOSING NOTES PATIENT REMAINS RESTING IN BED, WITH NO S/S OF DISTRESS. PATIENT ON 2L O2 VIA NC, NO SOB OR LABORED BREATHING. IV SITE NOTED WITH LFA G#18 INTACT, PATENT AND FLUSHED WITH NS, NO INFILTRATION NOTED IN SITE. PATIENT ON TELE MONITORING, WITH SR AND HR OF 67. CONDOM CATHETER NOTED, DRAINING ADEQUATELY. ALL ENVIRONMENTAL SAFETY MEASURES TAKEN AT THIS TIME, BED IN LOWEST POSITION, LOCKED, SIDE RAILS UP, BED ALARM ON AND LOCKED, CALL LIGHT WITHIN REACH. WILL ENDORSE PLAN OF CARE TO ONCOMING MORNING NURSE.
--- NOTE | 2021-01-25 07:43 | NUR ---
RN OPENING NOTE RECEIVED PT RESTING BED, RESPONSIVE TO STIMULI. A/O X3. NSR. IN ROOM AIR AND NOT IN RESPIRATORY DISTRESS. LFA G18 PATENT. ALL SAFETY MEASURES FOLLOWED. WILL CONTINUE TO MONITOR.
[2021-01-25 08:00] VITALS: BP 149/80
[2021-01-25] MEDS: PANTOPRAZOLE 40 MG TABLET.DR PO SCH (08:25)
[2021-01-25] MEDS: CARVEDILOL 12.5 MG TABLET PO SCH ×2 (08:26→17:00)
[2021-01-25] MEDS: AMLODIPINE BESYLATE 10 MG TABLET PO SCH (08:26)
[2021-01-25] MEDS: FUROSEMIDE 40 MG/4 ML VIAL IV SCH ×2 (08:26→17:00)
[2021-01-25] MEDS: ASPIRIN EC 81 MG TABLET.DR PO SCH (08:27)
[2021-01-25] MEDS: ISOSORBIDE MONONITRATE (30MG) 30 MG TAB.SR.24H PO SCH (08:27)
[2021-01-25] MEDS: LOSARTAN POTASSIUM 50 MG TABLET PO SCH (08:27)
[2021-01-25] MEDS: hydrALAZINE HCL 25 MG TABLET PO SCH ×3 (08:28→17:00)
[2021-01-25] MEDS: MINOXIDIL (2.5MG) 2.5 MG TABLET PO SCH (08:28)
[2021-01-25] MEDS: DOCUSATE SODIUM 100 MG CAPSULE PO SCH ×2 (08:41→17:00)
[2021-01-25 12:00] VITALS: BP 85/47
[2021-01-25 16:00] VITALS: BP 110/62
--- NOTE | 2021-01-25 18:58 | NUR ---
RN OPENING NOTE PT RESTING BED, RESPONSIVE TO STIMULI. A/O X3. NSR. IN ROOM AIR AND NOT IN RESPIRATORY DISTRESS. LFA G18 PATENT. ALL SAFETY MEASURES FOLLOWED. DUE MEDICATIONS TAKEN. WILL CONTINUE TO MONITOR.
--- NOTE | 2021-01-25 19:37 | NUR ---
RN OPENING NOTES: RECEIVED PATIENT AWAKE IN BED, BED IN LOW POSITION CALL LIGHTS WITHIN REACH, NO COMPLAIN OF PAIN AND DISCOMFORT AT THIS TIME, ON 2 LPM NO SOB OR ANY RESPIRATORY DISTRESS WAS OBSERVED, ON PADILLA CATH, WITH LFA #18S, PATIENT KEPT CLEAN AND DRY WILL CONTINUE TO MONITOR.
[2021-01-25 20:00] VITALS: BP 99/51
[2021-01-25] MEDS: ATORVASTATIN 40 MG TABLET PO SCH (23:02)
[2021-01-25] MEDS: MIRTAZAPINE 15 MG TABLET PO SCH (23:02)
[2021-01-26] VITALS (12 sets, daily range): BP systolic 116–158; BP diastolic 66–89
--- NOTE | 2021-01-26 06:15 | NUR ---
DIGITAL MARKETING ASSISTANT NOTES: PATIENT WAS TRANSFER TO MED SURG AT RM 314-2 ON STABLE CONDITION AT 0600, ALL MEDICATION AND INVENTORY WAS ENDORSE, PATIENT WAS CLEAN PRIOR TO TRANSFER, ON CONDOM CATHETER DRAIN WITH 300CC URINE OUTPUT ON TELE MONITORING SR-67, V/S ARE WITHIN NORMAL REACH ON 02 INHALATION AT 2LPM NO RESP DISTRESS WAS OBSERVED, PATIENT KEPT CLEAN AND DRY, NO COMPLAIN OF PAIN AN DISCOMFORT, ENDORSE TO KIM DAVENPORT
--- NOTE | 2021-01-26 06:30 | NUR ---
RECEIVED FROM DAMIEN ATTEMPTED TO TAKE PHOTO OF THE SACRAL WOUND BUT CAMERA NON FUNCTIONING WOUND ON SACRAL AREA CLEAN SIZE IF A ARIK HEALED MEPPILEX IN PLACE CALL LIGHT GIVEN TO THE PATIEN NOT TALKING AT THIS TIME BUT FOLLOWS DIRECTIONS HE TURNED THE TV ON AND IS NOW WATCHING TV NO SOB SR ON THE MONITOR CONDOM CATH IN PLACE
--- NOTE | 2021-01-26 08:00 | NUR ---
RN note Patient received in bed, AO x 3, able to responds all stimuli. Skin is warm to touch, keep clean/dry, intact IV site on left FA 18G SL. Respiratory even and unlabored with oxygen at 2Ls via NC, no SOB observed. Call light within reach, kept elevated HOB for airway and lower bed position for safety. Will continue to monitor.
[2021-01-26] MEDS: DOCUSATE SODIUM 100 MG CAPSULE PO SCH ×2 (09:45→16:36)
[2021-01-26] MEDS: ASPIRIN EC 81 MG TABLET.DR PO SCH (09:45)
[2021-01-26] MEDS: MINOXIDIL (2.5MG) 2.5 MG TABLET PO SCH (09:45)
[2021-01-26] MEDS: FUROSEMIDE 40 MG/4 ML VIAL IV SCH ×2 (09:45→16:35)
[2021-01-26] MEDS: hydrALAZINE HCL 25 MG TABLET PO SCH ×3 (09:45→16:35)
[2021-01-26] MEDS: ISOSORBIDE MONONITRATE (30MG) 30 MG TAB.SR.24H PO SCH (09:45)
[2021-01-26] MEDS: AMLODIPINE BESYLATE 10 MG TABLET PO SCH (09:46)
[2021-01-26] MEDS: LOSARTAN POTASSIUM 50 MG TABLET PO SCH (09:46)
[2021-01-26] MEDS: CARVEDILOL 12.5 MG TABLET PO SCH ×2 (09:47→16:36)
[2021-01-26] MEDS: PANTOPRAZOLE 40 MG TABLET.DR PO SCH (09:50)
--- NOTE | 2021-01-26 18:06 | NUR ---
RN Closing Note Patient in bed, resting, denies pain. Respiratory even and unabashed with oxygen at 2Ls via NC. Skin is warm to touch, keep clean/dry, intact IV site on left FA 18 g. Patient has mckeon catheter and 12,00mL out put. Kept elevated HOB for airway and lower position of the bed for safety. Call light within reach, all needs met. will endorse counter person.
--- NOTE | 2021-01-26 19:30 | NUR ---
RN OPENING NOTE PATIENT IN BED AWAKE, PATIENT IS ABLE TO MAKE NEEDS KNOWN, A/O X 4. PATIENT ON RA TOLERATING AT 96%. TELE MONITOR READS 82 BPM SR. PATIENT HAS A PADILLA CATHETER IN PLACE, YELLOW URINE DRAINING. ASKED PATIENT IF HE WANTS TO BE REPOSITIONED, AND CLEANED, PT REFUSES AT THIS TIME. PATIENT HAS A LFA 18 G SALINE LOCKED ONLY. PATIENT DOES NOT REPORT ANY PAIN. SAFETY MEASURES IN PLACE: BED LOCKED AND IN LOWEST POSITION, CALL LIGHT WITHIN REACH, SIDE RAILS UP. WILL MONITOR PATIENT CLOSELY.
[2021-01-26] MEDS: MIRTAZAPINE 15 MG TABLET PO SCH (21:45)
[2021-01-26] MEDS: ATORVASTATIN 40 MG TABLET PO SCH (21:45)
[2021-01-27 04:57] VITALS: BP 169/92
--- NOTE | 2021-01-27 05:03 | NUR ---
KIM NOTE PATIENT GIVEN TYLENOL PRN FOR PAIN ON LEGS Addendum: 01/27/21 at 0633 by MOISES ODOM RN WRONG PATIENT
--- NOTE | 2021-01-27 06:37 | NUR ---
RN CLOSING NOTE PATIENT IN BED SLEEPING, EASILY AWAKENED, PATIENT IS ABLE TO MAKE NEEDS KNOWN, A/O X 4. PATIENT ON RA TOLERATING AT 96%. TELE MONITOR READS 86 BPM SR. PATIENT HAS A PADILLA CATHETER IN PLACE, YELLOW URINE DRAINING. PATIENT CONTINUES TO REFUSE HYGIENE ACTIVITIES AND REPOSITIONING. PATIENT HAS A LFA 18 G SALINE LOCKED ONLY. PATIENT DOES NOT REPORT ANY PAIN. SAFETY MEASURES IMPLEMENTED. ALL NEEDS MET AND ATTENDED. ALL ORDERS CARRIED OUT. WILL ENDORSE TO DAY SHIFT NURSE FOR GIANNI.
--- NOTE | 2021-01-27 07:46 | NUR ---
RN OPENING NOTES PATIENT IN BED RESTING, AWAKE. A/O X3. NO S/S OF PAIN NOTED AT THIS TIME. ON ROOM AIR, NO DISTRESS OR SHORTNESS OF BREATH NOTED. IV ON LFA #18G SL. PATIENT HAS AN EXTERNAL GRILL PREP COOK WITH CURRENT READING OF SR AND HR OF 82. FALL AND SAFETY MEASURES IN PLACE, BED ALARM ON, BED IN LOW AND LOCK POSITION, CALL LIGHT AND TABLE WITHIN EASY REACH, SIDE RAILS UP X2. WILL CONTINUE TO MONITOR.
[2021-01-27 08:28] VITALS: BP 152/92
[2021-01-27] MEDS: PANTOPRAZOLE 40 MG TABLET.DR PO SCH (09:03)
[2021-01-27] MEDS: DOCUSATE SODIUM 100 MG CAPSULE PO SCH ×2 (09:03→17:57)
[2021-01-27] MEDS: ISOSORBIDE MONONITRATE (30MG) 30 MG TAB.SR.24H PO SCH (09:04)
[2021-01-27] MEDS: ASPIRIN EC 81 MG TABLET.DR PO SCH (09:04)
[2021-01-27] MEDS: MINOXIDIL (2.5MG) 2.5 MG TABLET PO SCH (09:05)
[2021-01-27] MEDS: hydrALAZINE HCL 25 MG TABLET PO SCH ×3 (09:05→17:00)
[2021-01-27] MEDS: AMLODIPINE BESYLATE 10 MG TABLET PO SCH (09:06)
[2021-01-27] MEDS: FUROSEMIDE 40 MG/4 ML VIAL IV SCH ×2 (09:07→17:57)
[2021-01-27] MEDS: LOSARTAN POTASSIUM 50 MG TABLET PO SCH (09:07)
[2021-01-27] MEDS: CARVEDILOL 12.5 MG TABLET PO SCH ×2 (09:07→17:00)
[2021-01-27 12:00] VITALS: BP 95/51
[2021-01-27 16:09] VITALS: BP 106/58
--- NOTE | 2021-01-27 19:36 | NUR ---
RN CLOSING NOTES PATIENT IN BED RESTING, AWAKE. A/O X3. NO S/S OF PAIN NOTED AT THIS TIME. ON ROOM AIR, NO DISTRESS OR SHORTNESS OF BREATH NOTED. IV ON LFA #18G SL. PATIENT HAS AN EXTERNAL ELECTROTYPER HELPER WITH CURRENT READING OF SR AND HR OF 80. FALL AND SAFETY MEASURES IN PLACE, BED ALARM ON, BED IN LOW AND LOCK POSITION, CALL LIGHT AND TABLE WITHIN EASY REACH, SIDE RAILS UP X2. WILL ENDORSE TO GENERAL WAREHOUSE ASSOCIATE.
[2021-01-27 20:00] VITALS: BP 114/59
--- NOTE | 2021-01-27 20:00 | NUR ---
CUSTOMER RECORDS DIVISION SUPERVISOR OPENING NOTES PATIENT AWAKE IN BED, ALERT/ORIENTED X 3, PT ABLE TO MAKE NEEDS KNOWN. PT DENIES PAIN OR DISCOMFORT AT THIS TIME. PT STABLE ON RA, NO S/S OF DISTRESS OR SOB NOTED, BREATHING EVEN AND UNLABORED. PT ON EXTERNAL HIDE INSPECTOR AND SORTER READING SINUS RHYTHM, HR: 85. IV ACCESS ON LEFT FOREARM #18G INTACT AND FLUSHING WELL. PATIENT HAS LEFT HEMIPLEGIA. SAFETY MEASURES IN PLACE: CALL LIGHT WITHIN REACH, SIDE RAILS UP X 2, BED LOCKED IN LOW POSITION, BED ALARM ON. WILL CONTINUE TO MONITOR PATIENT
[2021-01-27] MEDS: ATORVASTATIN 40 MG TABLET PO SCH (21:25)
[2021-01-27] MEDS: MIRTAZAPINE 15 MG TABLET PO SCH (21:25)
[2021-01-28] VITALS: BP 125/67
--- NOTE | 2021-01-28 06:35 | NUR ---
GAS APPLIANCE REPAIRER CLOSING NOTE PATIENT SLEEPING IN BED, NO SIGNIFICANT CHANGES THROUGHOUT SHIFT. PT STABLE ON RA, NO S/S OF DISTRESS OR SOB NOTED, BREATHING EVEN AND UNLABORED. PT ON EXTERNAL ADMITTING MANAGER READING SINUS RHYTHM, HR: 69. MEDICATIONS GIVEN ORDERED, PT NEEDS MET THROUGHOUT SHIFT. UNABLE TO TAKE PHOTO OF WOUNDS BECAUSE [employer] AND OTHER CAMERA WAS NOT WORKING, WILL ENDORSE TO DAY SHIFT NURSE. CLEANED PATIENT AND DID WOUND CARE. SAFETY MEASURES IN PLACE: CALL LIGHT WITHIN REACH, SIDE RAILS UP X 2, BED LOCKED IN LOW POSITION, BED ALARM ON. WILL ENDORSE TO DAY SHIFT NURSE FOR CONTINUITY OF CARE
--- NOTE | 2021-01-28 07:29 | NUR ---
RN OPENING NOTE PT IN BED ASLEEP. ON RA WITH NO SOB OR RESPIRATORY DISTRESS. A/OX 3 AND PERUVIAN SPEAKING. ON TOWER LOADER OPERATOR. ON BEDREST. WOUND PRESENT AND WOUND CARE TO BE GIVEN. IV PRESENT ON L FA 18 G AND SALINE LOCKED. SAFETY MEASURES IN PLACE. SIDE RAILS IN PLACE. BED IN LOWEST POSITION . CALL LIGHT WITHIN REACH. WILL CONTINUE TO MONITOR.
[2021-01-28] MEDS: PANTOPRAZOLE 40 MG TABLET.DR PO SCH (07:30)
[2021-01-28 08:00] VITALS: BP 135/74
[2021-01-28] MEDS: ASPIRIN EC 81 MG TABLET.DR PO SCH (08:37)
[2021-01-28] MEDS: DOCUSATE SODIUM 100 MG CAPSULE PO SCH ×2 (08:37→17:00)
[2021-01-28] MEDS: CARVEDILOL 12.5 MG TABLET PO SCH ×2 (08:38→17:00)
[2021-01-28] MEDS: hydrALAZINE HCL 25 MG TABLET PO SCH ×3 (08:38→17:00)
[2021-01-28] MEDS: AMLODIPINE BESYLATE 10 MG TABLET PO SCH (08:38)
[2021-01-28] MEDS: ISOSORBIDE MONONITRATE (30MG) 30 MG TAB.SR.24H PO SCH (08:38)
[2021-01-28] MEDS: LOSARTAN POTASSIUM 50 MG TABLET PO SCH (08:39)
[2021-01-28] MEDS: MINOXIDIL (2.5MG) 2.5 MG TABLET PO SCH (08:39)
[2021-01-28] MEDS: FUROSEMIDE 40 MG/4 ML VIAL IV SCH ×2 (08:40→17:26)
[2021-01-28 12:01] VITALS: BP 129/79
[2021-01-28] MEDS ORDERED: LOSA50TA39 PO (12:11)
[2021-01-28] MEDS ORDERED: FURO-144 PO (12:11)
[2021-01-28] MEDS ORDERED: MINO2.5T PO (12:11)
[2021-01-28 16:14] VITALS: BP 113/72
--- NOTE | 2021-01-28 18:53 | NUR ---
RN CLOSING NOTE PT IN BED ASLEEP. ON RA WITH NO SOB OR RESPIRATORY DISTRESS. A/OX 3 AND MACEDONIAN SPEAKING. ON INDUSTRIAL MACHINE OPERATOR. ON BEDREST. WOUND PRESENT AND WOUND CARE TO BE GIVEN. IV PRESENT ON L FA 18 G AND SALINE LOCKED. SAFETY MEASURES IN PLACE. SIDE RAILS IN PLACE. BED IN LOWEST POSITION . CALL LIGHT WITHIN REACH. WILL GIVE REPORT TO NIGHT NURSE FOR GIANNI
--- NOTE | 2021-01-28 19:20 | NUR ---
RN OPENING NOTE PT IN BED ASLEEP. ON RA WITH NO SOB OR RESPIRATORY DISTRESS. A/OX 3 AND TRINIDADIAN SPEAKING. ON SUPERINTENDENT RECREATION. ON BEDREST IV PRESENT ON L FA 18 G AND SALINE LOCKED. SAFETY MEASURES IN PLACE. SIDE RAILS IN PLACE. BED IN LOWEST POSITION . CALL LIGHT WITHIN REACH. WILL CONTINUE TO MONITOR.
[2021-01-28 20:00] VITALS: BP 130/78
[2021-01-28] MEDS: ATORVASTATIN 40 MG TABLET PO SCH (21:54)
[2021-01-28] MEDS: MIRTAZAPINE 15 MG TABLET PO SCH (21:54)
[2021-01-29] VITALS: BP 126/82
[2021-01-29 04:00] VITALS: BP 135/82
--- NOTE | 2021-01-29 05:29 | NUR ---
INDUSTRIAL THERAPIST NOTES PT REFUSED LAB DRAW X3 RISK AND BENEFITS EXPLAINED. WILL CONTINUE TO MONITOR.
--- NOTE | 2021-01-29 06:32 | NUR ---
RN CLOSING NOTE PT IN BED ASLEEP. ON RA WITH NO SOB OR RESPIRATORY DISTRESS. A/OX 3 AND [place] SPEAKING. 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 ON BEDREST IV PRESENT ON LFA 18G AND SALINE LOCKED. SAFETY MEASURES IN PLACE. SIDE RAILS IN PLACE. BED IN LOWEST POSITION . CALL LIGHT WITHIN REACH. WILL ENDORSE TO DAY SHIFT NURSE.
[2021-01-29] MEDS: PANTOPRAZOLE 40 MG TABLET.DR PO SCH (07:30)
--- NOTE | 2021-01-29 07:32 | NUR ---
RN OPENING NOTE PT IN BED ASLEEP. ON RA WITH NO SOB OR RESPIRATORY DISTRESS. A/OX 3 AND [place] SPEAKING. 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 ON BEDREST. WOUND PRESENT AND WOUND CARE TO BE GIVEN. IV PRESENT ON L FA 18 G AND SALINE LOCKED. SAFETY MEASURES IN PLACE. SIDE RAILS IN PLACE. BED IN LOWEST POSITION . CALL LIGHT WITHIN REACH. WILL CONTINUE TO MONITOR.
[2021-01-29] MEDS: FUROSEMIDE 40 MG/4 ML VIAL IV SCH (09:00)
[2021-01-29] MEDS: ASPIRIN EC 81 MG TABLET.DR PO SCH (09:00)
[2021-01-29] MEDS: DOCUSATE SODIUM 100 MG CAPSULE PO SCH (09:00)
[2021-01-29] MEDS: CARVEDILOL 12.5 MG TABLET PO SCH (09:00)
[2021-01-29] MEDS: hydrALAZINE HCL 25 MG TABLET PO SCH ×2 (09:00→11:52)
[2021-01-29] MEDS: AMLODIPINE BESYLATE 10 MG TABLET PO SCH (09:00)
[2021-01-29] MEDS: LOSARTAN POTASSIUM 50 MG TABLET PO SCH (09:00)
[2021-01-29] MEDS: MINOXIDIL (2.5MG) 2.5 MG TABLET PO SCH (09:00)
[2021-01-29] MEDS: ISOSORBIDE MONONITRATE (30MG) 30 MG TAB.SR.24H PO SCH (09:00)
[2021-01-29 12:00] VITALS: BP 123/73
[2021-01-29 16:00] VITALS: BP 138/76
--- NOTE | 2021-01-29 17:21 | NUR ---
CONCRETE PAVER NOTE PT DISCHARGED TO HELPING HANDS BOARD AND CARE. HOSPICE TO BE INITIATED AT FACILITY. IV REMOVED. ID BANDS REMOVED. EXITCARE EDUCATION UTILIZED AND GIVEN TO PT. V/S CHECKED. STABLE CONDITION. SKIN ISSUES RESOLVED AND INTACT. NO BELONGINGS WITH PT. PT TRANSPORTED OUT OF HOSPITAL VIA AMBULANCE ESCORTED WITH EMT
== END 2021-01-29 17:27 | disposition home or self-care (01) | DRG 194 ==
LOC: ER 09:14 → TELE-TD 13:45 → TELE1 01-19 11:25 → TELE 01-26 06:10
PROVIDERS: ATTEND Nurse Practitioner Acute Care
DX: I13.0 Hypertensive heart and chronic kidney disease with heart failure and stage 1 through stage 4 chronic kidney disease, or unspecified chronic kidney disease (principal); J96.01 Acute respiratory failure with hypoxia; I21.A1 Myocardial infarction type 2; G93.41 Metabolic encephalopathy; I69.354 Hemiplegia and hemiparesis following cerebral infarction affecting left non-dominant side; I27.20 Pulmonary hypertension, unspecified; E88.09 Other disorders of plasma-protein metabolism, not elsewhere classified; N17.9 Acute kidney failure, unspecified; N18.9 Chronic kidney disease, unspecified; I50.43 Acute on chronic combined systolic (congestive) and diastolic (congestive) heart failure; D72.829 Elevated white blood cell count, unspecified; Z20.822 Contact with and (suspected) exposure to COVID-19; Z86.718 Personal history of other venous thrombosis and embolism; I42.9 Cardiomyopathy, unspecified; Z86.59 Personal history of other mental and behavioral disorders; E78.5 Hyperlipidemia, unspecified; F32.A Depression, unspecified; J98.11 Atelectasis; Z51.5 Encounter for palliative care; I82.819 Embolism and thrombosis of superficial veins of unspecified lower extremity
CPT/HCPCS: 36415; 36600; 70450-TC; 71045-TC; 76770-TC; 80048-TC; 80053-TC; 80076-TC; 81001; 82140-TC; 82570-TC; 83735-TC; 83880; 83970; 84100-TC; 84300-TC; 84443-TC; 84484-TC; 85025-TC; 85730-TC; 86850-TC; 93307-TC; 93970-TC; 97116-TC; 97530-TC; A4349; A6248; G0378; G0480; J0360; J1644; J1940; J3490; J7030; J7050; U0003